=== PATIENT | male | born 1940 | race Caucasian/White ===

== ENCOUNTER → 2016-12-11 | Outpatient (CLI) | payer MEDICARE, BC | LOC: HEART 5 07:38 | DX: I25.10 Atherosclerotic heart disease of native coronary artery without angina pectoris (principal); R06.00 Dyspnea, unspecified; R94.39 Abnormal result of other cardiovascular function study | CPT/HCPCS: 78452; 93306; A9502; J2785 ==

== ENCOUNTER 2020-07-18 19:23 | Emergency (ER) | payer MEDICARE, BC ==
[2020-07-18 21:35] LABS: BUN/CREATININE RATIO 15 (0-10)
[2020-07-18 21:36] LABS: HEMOGLOBIN 12.6 gm/dl (14.0-17.5); RED BLOOD COUNT 4.3 M/UL (4.20-5.50); WHITE BLOOD COUNT 17.6 K/UL (4.5-11.0)
== END 2020-07-19 00:21 | disposition home or self-care (01) ==
LOC: ER1 19:23
PROVIDERS: Family Medicine
DX: R25.1 Tremor, unspecified (principal); E86.0 Dehydration; D72.829 Elevated white blood cell count, unspecified; N19 Unspecified kidney failure; Z88.1 Allergy status to other antibiotic agents
CPT/HCPCS: 71045; 80053; 82550; 82553; 83874; 84100; 84439; 84443; 84484; 85025; 93005; 99284

== ENCOUNTER → 2020-08-03 | Outpatient (CLI) | payer MEDICARE, BC ==
[~2020-08-03] MED LIST: AMLODIPINE BESY10 MG PO; ASPIRIN EC81 MG PO; CALQUENCE PO; CEFUROXIME500 MG PO; FAMOTIDINE20 MG PO; FISH OIL 1,0001 EACH PO; FOLIC ACID 1 MG1 MG PO; ISOSORBIDE MONO30 MG PO; LEVOFLOXACIN500 MG PO; LISINOPRIL20 MG PO; LOPRESSOR 25 MG25 MG PO; MEGACE 400400 MG/10 PO; MIRTAZAPINE7.5 MG PO; PROSCAR5 MG PO; VITAMIN B-121000 MC3 PO; VITAMIN B-6100 MG PO; ZESTRIL 40 MG T40 MG PO; ZYLOPRIM 300 M300 MG PO
== END ==
LOC: KOH-I 09:15
DX: R93.89 Abnormal findings on diagnostic imaging of other specified body structures (principal)
CPT/HCPCS: 71046

== ENCOUNTER → 2020-08-03 | Outpatient (CLI) | payer MEDICARE, BC ==
[2020-08-03 11:44] LABS: HEMOGLOBIN 12.8 gm/dl (14.0-17.5); RED BLOOD COUNT 4.13 M/UL (4.20-5.50); WHITE BLOOD COUNT 25.8 K/UL (4.5-11.0)
== END ==
LOC: LAB 10:44
PROVIDERS: Physician Assistant Medical
DX: D72.829 Elevated white blood cell count, unspecified (principal); E55.9 Vitamin D deficiency, unspecified; E78.2 Mixed hyperlipidemia; E86.0 Dehydration; I12.9 Hypertensive chronic kidney disease with stage 1 through stage 4 chronic kidney disease, or unspecified chronic kidney disease
CPT/HCPCS: 36415; 71046; 80053; 85007; 85027

== ENCOUNTER → 2020-08-17 | Outpatient (CLI) | payer MEDICARE, BC | LOC: KOH-I 08:38 | DX: R59.1 Generalized enlarged lymph nodes (principal) | CPT/HCPCS: 70490; 71250; 74176 ==

== ENCOUNTER 2020-09-18 20:52 | Inpatient (IN) | payer MEDICARE, BC ==
[~2020-09-18] VITALS: Ht 172.7 cm; Wt 92.5 kg
[2020-09-18 22:00] LABS: RED BLOOD COUNT 3.38 M/UL (4.20-5.50)
[2020-09-19 08:02] LABS: BUN/CREATININE RATIO 33 (0-10)
[2020-09-19 10:39] LABS: ACINETOBACTER BAUMANNII Not Detected (Negative); CANDIDA ALBICANS Not Detected (Negative); CANDIDA KRUSEI Not Detected (Negative); CANDIDA TROPICALIS Not Detected (Negative); ENTEROCOCCUS Not Detected (Negative); HAEMOPHILUS INFLUENZAE Not Detected (Negative); KLEBSIELLA OXYTOCA Not Detected (Negative); KLEBSIELLA PNEUMONIAE Not Detected (Negative); KPC-CARBAPENEM-RESISTANCE GENE Not Detected (Negative); PROTEUS Not Detected (Negative); PSEUDOMONAS AERUGINOSA Not Detected (Negative); SERRATIA MARCESANS Not Detected (Negative); STAPHYLOCOCCUS Not Detected (Negative); STAPHYLOCOCCUS AUREUS Not Detected (Negative); STREP AGALACTIAE (GROUP B) Not Detected (Negative); STREP PYOGENES (GROUP A) Not Detected (Negative); STREPTOCOCCUS Not Detected (Negative); mecA (METHICILLIN RESIST GENE Not Detected (Negative); vanA/B (VANCOMYCIN RESIST GENE Not Detected (Negative)
[2020-09-19 12:52] LABS: ESCHERICHIA COLI DETECTED (Negative)
[2020-09-19] MEDS ORDERED: AMLODIPINE BESY10 MG PO (13:10)
[2020-09-19] MEDS ORDERED: CALQUENCE PO (13:11)
[2020-09-19] MEDS ORDERED: LOPRESSOR 25 MG25 MG PO (13:12)
[2020-09-19] MEDS ORDERED: ISOSORBIDE MONO30 MG PO (13:12)
[2020-09-19] MEDS ORDERED: FOLIC ACID 1 MG1 MG PO (13:12)
[2020-09-19] MEDS ORDERED: ZYLOPRIM 300 M300 MG PO (13:12)
[2020-09-19] MEDS ORDERED: VITAMIN B-6100 MG PO (13:13)
[2020-09-19] MEDS ORDERED: FISH OIL 1,0001 EACH PO (13:13)
[2020-09-19] MEDS ORDERED: PROSCAR5 MG PO (13:14)
[2020-09-19] MEDS ORDERED: LISINOPRIL20 MG PO (13:14)
[2020-09-19] MEDS ORDERED: VITAMIN B-121000 MC3 PO (13:14)
[2020-09-19 14:12] LABS: HEMOGLOBIN 9.7 gm/dl (14.0-17.5)
[2020-09-19 14:15] LABS: RED BLOOD COUNT 2.99 M/UL (4.20-5.50); WHITE BLOOD COUNT 11.1 K/UL (4.5-11.0)
[2020-09-20 03:30] LABS: HEMOGLOBIN 9.9 gm/dl (14.0-17.5); RED BLOOD COUNT 3.02 M/UL (4.20-5.50); WHITE BLOOD COUNT 8.7 K/UL (4.5-11.0)
[2020-09-20 15:26] LABS: WHITE BLOOD COUNT 20.5 K/UL (4.5-11.0)
--- NOTE | 2020-09-20 18:14 | NUR ---
RECEIVED CARE FROM GILLES TRAMMELL AT 1134. PT UNCHANGED FROM MORNING ASSESSMENT. WILL CONTINUE TO MONITOR.
[2020-09-21 03:33] LABS: HEMOGLOBIN 9.9 gm/dl (14.0-17.5); RED BLOOD COUNT 3.04 M/UL (4.20-5.50); WHITE BLOOD COUNT 8.2 K/UL (4.5-11.0)
[2020-09-22] MEDS ORDERED: CEFUROXIME500 MG PO (11:09)
== END 2020-09-22 13:25 | disposition home health service (06) | DRG 871 ==
LOC: ER1 20:52 → CDU 23:11 → M/S 09-19 09:01
PROVIDERS: Emergency Medicine; Internal Medicine Infectious Disease; ADMIT Internal Medicine
DX: A41.51 Sepsis due to Escherichia coli [E. coli] (principal); G93.41 Metabolic encephalopathy; D61.810 Antineoplastic chemotherapy induced pancytopenia; N30.00 Acute cystitis without hematuria; N17.9 Acute kidney failure, unspecified; C91.10 Chronic lymphocytic leukemia of B-cell type not having achieved remission; B96.20 Unspecified Escherichia coli [E. coli] as the cause of diseases classified elsewhere; N18.30 Chronic kidney disease, stage 3 unspecified; R65.20 Severe sepsis without septic shock; I12.9 Hypertensive chronic kidney disease with stage 1 through stage 4 chronic kidney disease, or unspecified chronic kidney disease; Z20.822 Contact with and (suspected) exposure to COVID-19; D69.6 Thrombocytopenia, unspecified; I25.10 Atherosclerotic heart disease of native coronary artery without angina pectoris; H91.90 Unspecified hearing loss, unspecified ear; Z87.891 Personal history of nicotine dependence; Z88.8 Allergy status to other drugs, medicaments and biological substances
CPT/HCPCS: 36415; 36600; 70450; 71045; 80048; 80053; 81001; 82140; 82550; 82553; 82607; 82746; 82803; 82962; 83605; 83735; 83874; 83880; 83935; 84100; 84300; 84484; 84550; 85025; 86140; 87040; 87077; 87086; 87150; 87186; 93005; 96365; 96375; 96376; 97110-GP-CQ; 97116-GP-CQ; 97161; 99285; C9113; G0378; J1335; J2185; J3475; U0002

== ENCOUNTER 2020-10-08 19:37 | Inpatient (IN) | payer MEDICARE, BC ==
[~2020-10-08] VITALS: Ht 172.7 cm; Wt 89.4 kg
[~2020-10-08 19:37] MED LIST changes: -ASPIRIN EC81 MG PO; -FAMOTIDINE20 MG PO; -LEVOFLOXACIN500 MG PO; -MEGACE 400400 MG/10 PO; -MIRTAZAPINE7.5 MG PO; -ZESTRIL 40 MG T40 MG PO
[2020-10-08 22:18] LABS: BUN/CREATININE RATIO 14 (0-10)
[2020-10-08 22:22] LABS: HEMOGLOBIN 11.9 gm/dl (14.0-17.5); RED BLOOD COUNT 3.61 M/UL (4.20-5.50); WHITE BLOOD COUNT 18.9 K/UL (4.5-11.0)
[2020-10-09] MEDS ORDERED: ASPIRIN EC81 MG PO (14:07)
[2020-10-10 05:17] LABS: HEMOGLOBIN 10.1 gm/dl (14.0-17.5)
[2020-10-10 05:26] LABS: RED BLOOD COUNT 3.04 M/UL (4.20-5.50); WHITE BLOOD COUNT 9.4 K/UL (4.5-11.0)
[2020-10-11 11:08] LABS: HEMOGLOBIN 11.3 gm/dl (14.0-17.5); WHITE BLOOD COUNT 11.1 K/UL (4.5-11.0)
[2020-10-11 11:09] LABS: RED BLOOD COUNT 3.41 M/UL (4.20-5.50)
[2020-10-12 04:23] LABS: BUN/CREATININE RATIO 20 (0-10)
[2020-10-12 04:27] LABS: HEMOGLOBIN 10.8 gm/dl (14.0-17.5); RED BLOOD COUNT 3.27 M/UL (4.20-5.50)
[2020-10-13 04:13] LABS: HEMOGLOBIN 10.1 gm/dl (14.0-17.5); RED BLOOD COUNT 3.01 M/UL (4.20-5.50)
[2020-10-13 04:17] LABS: WHITE BLOOD COUNT 5.7 K/UL (4.5-11.0)
[2020-10-13 04:43] LABS: BUN/CREATININE RATIO 17 (0-10)
[2020-10-14 03:47] LABS: HEMOGLOBIN 10.5 gm/dl (14.0-17.5); RED BLOOD COUNT 3.1 M/UL (4.20-5.50); WHITE BLOOD COUNT 6.1 K/UL (4.5-11.0)
[2020-10-14 04:02] LABS: BUN/CREATININE RATIO 16 (0-10)
[2020-10-14] MEDS ORDERED: LEVOFLOXACIN500 MG PO (09:18)
== END 2020-10-14 12:47 | disposition home or self-care (01) | DRG 872 ==
LOC: ER1 19:37 → M/S 10-09 05:17 → CDU 10-09 05:17 → M/S 10-09 10:35
PROVIDERS: Internal Medicine; Physician Assistant; ADMIT Internal Medicine
DX: A41.51 Sepsis due to Escherichia coli [E. coli] (principal); N30.00 Acute cystitis without hematuria; E87.1 Hypo-osmolality and hyponatremia; N17.9 Acute kidney failure, unspecified; C91.10 Chronic lymphocytic leukemia of B-cell type not having achieved remission; G93.40 Encephalopathy, unspecified; N45.3 Epididymo-orchitis; D64.9 Anemia, unspecified; D69.6 Thrombocytopenia, unspecified; N18.30 Chronic kidney disease, stage 3 unspecified; I12.9 Hypertensive chronic kidney disease with stage 1 through stage 4 chronic kidney disease, or unspecified chronic kidney disease; R65.20 Severe sepsis without septic shock; Z20.822 Contact with and (suspected) exposure to COVID-19; I25.10 Atherosclerotic heart disease of native coronary artery without angina pectoris; Z95.5 Presence of coronary angioplasty implant and graft; Z79.899 Other long term (current) drug therapy
CPT/HCPCS: 0240U; 36415; 70450; 71045; 76870; 80048; 80053; 81001; 82550; 82553; 83605; 83690; 83735; 83874; 83880; 84484; 85007; 85025; 85027; 85610; 85730; 87040; 87077; 87086; 87186; 93005; 96365; 97116-GP-CQ; 97161; 99285; J0696; J2185; J7030

== ENCOUNTER → 2020-10-23 | Outpatient (CLI) | payer MEDICARE, BC ==
[~2020-10-23] MED LIST changes: +ASPIRIN EC81 MG PO; +FAMOTIDINE20 MG PO; +LEVOFLOXACIN500 MG PO; +MEGACE 400400 MG/10 PO; +MIRTAZAPINE7.5 MG PO; +ZESTRIL 40 MG T40 MG PO
== END ==
LOC: KOH-I 11:09
DX: M51.34 Other intervertebral disc degeneration, thoracic region (principal)
CPT/HCPCS: 72070

== ENCOUNTER 2020-10-25 14:53 | Inpatient (IN) | payer MEDICARE, BC ==
[~2020-10-25] VITALS: Ht 175.3 cm; Wt 77.6 kg
[~2020-10-25 14:53] MED LIST changes: -FAMOTIDINE20 MG PO; -MEGACE 400400 MG/10 PO; -MIRTAZAPINE7.5 MG PO; -ZESTRIL 40 MG T40 MG PO
[2020-10-25 15:39] LABS: HEMOGLOBIN 10.4 gm/dl (14.0-17.5); WHITE BLOOD COUNT 15.8 K/UL (4.5-11.0)
[2020-10-25 16:21] LABS: BUN/CREATININE RATIO 19 (0-10)
[2020-10-25] MEDS ORDERED: ZESTRIL 40 MG T40 MG PO (18:06)
[2020-10-25] MEDS ORDERED: MIRTAZAPINE7.5 MG PO (18:06)
--- NOTE | 2020-10-25 23:46 | NUR ---
SPOKE WITH PATIENT AND PATIENT'S ABOUT MED LIST. NEITHER ONE KNOWS PT MEDS. INSTRUCTED PT'S TO CALL IN THE MORNING WITH PT'S MED LIST.
[2020-10-26 06:00] LABS: HEMOGLOBIN 9.3 gm/dl (14.0-17.5); WHITE BLOOD COUNT 12.5 K/UL (4.5-11.0)
[2020-10-26 07:01] LABS: RED BLOOD COUNT 2.83 M/UL (4.20-5.50)
[2020-10-27 03:34] LABS: HEMOGLOBIN 8.8 gm/dl (14.0-17.5); RED BLOOD COUNT 2.71 M/UL (4.20-5.50); WHITE BLOOD COUNT 12.9 K/UL (4.5-11.0)
[2020-10-28 03:49] LABS: BUN/CREATININE RATIO 13 (0-10)
[2020-10-28 04:51] LABS: HEMOGLOBIN 8.8 gm/dl (14.0-17.5); RED BLOOD COUNT 2.67 M/UL (4.20-5.50)
[2020-10-28] MEDS ORDERED: MEGACE 400400 MG/10 PO ×2 (11:32→15:41)
[2020-10-28] MEDS ORDERED: FAMOTIDINE20 MG PO (11:32)
--- NOTE | 2020-10-28 12:33 | NUR ---
CALLED [phone]. NO ANSWER. LEFT VOICEMAIL WITH MY RETURN PHONE NUMBER FOR PT TO RESUME HH AND INCRESE PT.
[2020-11-01 16:28] LABS: WHITE BLOOD COUNT 12.8 K/UL (4.5-11.0)
== END 2020-10-28 13:47 | disposition home or self-care (01) | DRG 884 ==
LOC: ER1 14:53 → CDU 16:54 → M/S 19:12
PROVIDERS: Preventive Medicine Occupational Medicine; ADMIT Internal Medicine
DX: F03.90 Unspecified dementia, unspecified severity, without behavioral disturbance, psychotic disturbance, mood disturbance, and anxiety (principal); N17.9 Acute kidney failure, unspecified; C91.90 Lymphoid leukemia, unspecified not having achieved remission; N18.30 Chronic kidney disease, stage 3 unspecified; E87.6 Hypokalemia; D69.6 Thrombocytopenia, unspecified; Z20.822 Contact with and (suspected) exposure to COVID-19; I25.10 Atherosclerotic heart disease of native coronary artery without angina pectoris; Z95.5 Presence of coronary angioplasty implant and graft; I12.9 Hypertensive chronic kidney disease with stage 1 through stage 4 chronic kidney disease, or unspecified chronic kidney disease; E86.0 Dehydration
CPT/HCPCS: 36415; 36600; 70450; 71045; 80048; 80053; 80307; 81001; 82550; 82553; 82803; 83605; 83690; 83735; 83874; 83880; 84484; 85007; 85025; 85027; 85652; 86140; 87040; 87086; 96374; 96376; 97116-GP-CQ; 97162; 97530-GP-CQ; 99285; G0378; G0480; J0696; J7030; U0002

== ENCOUNTER → 2021-01-11 | Outpatient (CLI) | payer MEDICARE, BC ==
[~2021-01-11] MED LIST changes: +FAMOTIDINE20 MG PO; +MEGACE 400400 MG/10 PO; +MIRTAZAPINE7.5 MG PO; +ZESTRIL 40 MG T40 MG PO
== END ==
LOC: CT 10:14
DX: R59.1 Generalized enlarged lymph nodes (principal); C91.10 Chronic lymphocytic leukemia of B-cell type not having achieved remission
CPT/HCPCS: 36415; 70491; 71260; Q9965

== ENCOUNTER → 2021-10-07 | Outpatient (CLI) | payer MEDICARE, BC ==
[2021-10-07 09:21] LABS: HEMOGLOBIN 12.7 gm/dl (14.0-17.5); RED BLOOD COUNT 4.08 M/UL (4.20-5.50); WHITE BLOOD COUNT 7.1 K/UL (4.5-11.0)
== END ==
LOC: CT 08:58
PROVIDERS: Internal Medicine Hematology & Oncology
DX: R59.1 Generalized enlarged lymph nodes (principal); D72.829 Elevated white blood cell count, unspecified; C91.10 Chronic lymphocytic leukemia of B-cell type not having achieved remission; K80.80 Other cholelithiasis without obstruction; R91.1 Solitary pulmonary nodule; R59.0 Localized enlarged lymph nodes
CPT/HCPCS: 36415; 70491; 71260; 80053; 83615; 85027; Q9965

== ENCOUNTER 2021-10-13 13:20 | Emergency (ER) | payer MEDICARE, BC ==
[2021-10-13 16:08] LABS: HEMOGLOBIN 13.1 gm/dl (14.0-17.5); RED BLOOD COUNT 4.18 M/UL (4.20-5.50); WHITE BLOOD COUNT 7.2 K/UL (4.5-11.0)
== END 2021-10-13 18:37 | disposition home or self-care (01) ==
LOC: ER1 13:20
PROVIDERS: Physician Assistant
DX: R25.1 Tremor, unspecified (principal); I10 Essential (primary) hypertension
CPT/HCPCS: 70450; 80053; 83735; 84100; 84439; 84443; 85025; 99284

== ENCOUNTER → 2021-11-27 | Outpatient (CLI) | payer MEDICARE, BC | LOC: EMI 13:00 | DX: R41.3 Other amnesia (principal) | CPT/HCPCS: 70551 ==